=== PATIENT | female | born 2005 | race Caucasian/White ===

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

== ENCOUNTER → 2024-12-20 | Outpatient (CLI) | payer MEDICAID, SELFPAY ==
--- OUTSIDE RECORDS SUMMARY | 2024-12-20 12:12 | XMS RPT_ITS | CCD ---
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 Juliane Alvarez Attending Provider DANA HERRERA Attending Unavailable REFERRED, SELF Referring Unavailable DELFINA ROLON Primary Care Unavailable Yoshi GUIDANCE SECRETARY, GUIDANCE SECRETARY-C Otis Primary Care Provider Yoshi BOSWELL, ANDREIA-Bertha Berg Referring Provider [phone] Nelson BOSWELL, RAVINDRA Anton Attending Provider GENERIC PROVIDER, NO ASSIGNED PCP Primary Care Unavailable BRUCE SOMMERS Attending Unavailable Generic Provider MD, No Assigned Pcp Primary Car e Provider Unavailable Karla Lala Attending Unavailable Cheli Urena Referring Unavailable Cheli Urena Primary Care Unavailable Allergies Allergy Classification Reported Allergen(s) Allergy Type Date of Onset Reaction(s) Facility (1 source) OTHER; Translations: [OTHER] Propensity to adverse reactions to food (disorder) 3 [facility] Repository Medications Current Medications Medication Drug Class(es) Dates Sig (Normalized) Sig (Original) amoxicillin 875 mg / clavulanate 125 mg oral tablet (1 source) Penicillin-class Antibacterial Start: 02-25-2023 End: 03-07-2023 take 1 tablet by mouth twice daily amoxicillin-pot clavulanate (Augmentin) 875-125 mg tablet Indications: Acute sinusitis, recurrence not specified, unspecified location Take 1 tablet (875 mg) by mouth 2 times a day for 10 days. Take with a meal. 20 tablet 0 02/25/2023 03/07/2023 Active Desog-E.Estradiol/ E.Estradiol (20 sources) Progestin, Estrogen Start: 10-06-2023 take 0.15 tablet by mouth once daily Desog-E.Estradiol /E.Estradiol (Kariva (28)) 0.15-0.02 mgx21 /0.01 mg x 5 tablet Active 1 {tbl} PO daily October 06, 2023 2:06pm Start: 01-26-2023 take 1 tablet by marysol once daily Volnea, 28, 0.15-0.02 mgx21 /0.01 mg x 5 tablet take 1 tablet by mouth once daily ACTIVE PILLS ONLY FOR CONTINUOUS CYCLING 0 01/26/2023 Active Start: 10-05-2022 End: 10-06-2023 take 0.15 tablet by mouth once daily Desog-E.Estradiol/E.Estradiol (Kariva (28)) 0.15-0.02 mgx21 /0.01 mg x 5 tablet Discontinued 1 {tbl} PO daily October 05, 2022 11:01am October 06, 2023 2:06pm Start: 10-05-2022 take 0.15 tablet by mouth once daily Desog-E.Estradiol/E.Estradiol (Kariva (28)) 0.15-0.02 mgx21 /0.01 mg x 5 tablet Active 1 TABLET PO daily October 05, 2022 11:01am Start: 10-05-2022 take 0.15 tablet by mouth once daily Desog-E.Estradiol/E.Estradiol (Kariva (28)) 0.15-0.02 mgx21 /0.01 mg x 5 tablet Active 1 TABLET PO daily October 05, 2022 10:01am Start: 09-15-2022 End: 10-05-2022 take 0.15 tablet by mouth once daily Desog-E.Estradiol/E.Estradiol (Kariva (28)) 0.15-0.02 mgx21 /0.01 mg x 5 tablet Discontinued 1 {tbl} PO daily September 15, 2022 11:35am October 05, 2022 11:02am Start: 09-15-2022 End: 10-05-2022 take 0.15 tablet by mouth once daily Desog-E.Estradiol/E.Estradiol (Kariva (28)) 0.15-0.02 mgx21 /0.01 mg x 5 tablet Discontinued 1 TABLET PO daily September 15, 2022 11:35am October 05, 2022 11:02am Start: 09-15-2022 End: 10-05-2022 take 0.15 tablet by mouth once daily Desog-E.Estradiol/E.Estradiol (Kariva (28)) 0.15-0.02 mgx21 /0.01 mg x 5 tablet Discontinued 1 TABLET PO daily September 15, 2022 10:35am October 05, 2022 10:02am Start: 04-04-2022 End: 09-15-2022 take 0.15 tablet by mouth once daily Desog-E.Estradiol/E.Estradiol (Kariva (28)) 0.15-0.02 mgx21 /0.01 mg x 5 tablet Discontinued 1 {tbl} PO daily April 04, 2022 10:31am September 15, 2022 11:35am Start: 04-04-2022 End: 09-15-2022 take 0.15 tablet by mouth once daily Desog-E.Estradiol/E.Estradiol (Kariva (28)) 0.15-0.02 mgx21 /0.01 mg x 5 tablet Discontinued 1 TABLET PO daily April 04, 2022 10:31am September 15, 2022 11:35am Start: 04-04-2022 End: 09-15-2022 take 0.15 tablet by mouth once daily Desog-E.Estradiol/E.Estradiol (Kariva (28)) 0.15-0.02 mgx21 /0.01 mg x 5 tablet Discontinued 1 TABLET PO daily April 04, 2022 9:31am September 15, 2022 10:35am Start: 03-23-2021 End: 04-04-2022 take 0.15 tablet by mouth once daily Desog-E.Estradiol/E.Estradiol (Kariva (28)) 0.15-0.02 mgx21 /0.01 mg x 5 tablet Discontinued 1 {tbl} PO daily March 23, 2021 2:06pm April 04, 2022 10:31am Start: 03-23-2021 End: 04-04-2022 take 0.15 tablet by mouth once daily Desog-E.Estradiol/E.Estradiol (Kariva (28)) 0.15-0.02 mgx21 /0.01 mg x 5 tablet Discontinued 1 TABLET PO daily March 23, 2021 2:06pm April 04, 2022 10:31am Start: 03-23-2021 End: 04-04-2022 take 0.15 tablet by mouth once daily Desog-E.Estradiol/E.Estradiol (Kariva (28)) 0.15-0.02 mgx21 /0.01 mg x 5 tablet Discontinued 1 TABLET PO daily March 23, 2021 1:06pm April 04, 2022 9:31am Start: 03-23-2021 take 0.15 tablet by mouth once daily Desog-E.Estradiol/E.Estradiol (Kariva (28)) 0.15-0.02 mgx21 /0.01 mg x 5 tablet Active 1 TABLET PO daily March 23, 2021 2:06pm Start: 02-19-2020 End: 03-23-2021 take 0.15 tablet by mouth once daily Desog-E.Estradiol/E.Estradiol (Kariva (28)) 0.15-0.02 mgx21 /0.01 mg x 5 tablet Discontinued 1 {tbl} PO daily February 19, 2020 12:20pm March 23, 2021 2:06pm Start: 02-19-2020 End: 03-23-2021 take 0.15 tablet by mouth once daily Desog-E.Estradiol/E.Estradiol (Kariva (28)) 0.15-0.02 mgx21 /0.01 mg x 5 tablet Discontinued 1 TABLET PO daily February 19, 2020 11:20am March 23, 2021 1:06pm Start: 02-19-2020 End: 03-23-2021 take 0.15 tablet by mouth once daily Desog-E.Estradiol/E.Estradiol (Kariva (28)) 0.15-0.02 mgx21 /0.01 mg x 5 tablet Discontinued 1 TABLET PO daily February 19, 2020 12:20pm March 23, 2021 2:06pm Start: 02-17-2020 End: 02-19-2020 take 0.15 tablet by mouth once daily Desog-E.Estradiol/E.Estradiol (Kariva (28)) 0.15-0.02 mgx21 /0.01 mg x 5 tablet Discontinued 1 {tbl} PO daily February 17, 2020 9:52am February 19, 2020 12:20pm Start: 02-17-2020 End: 02-19-2020 take 0.15 tablet by mouth once daily Desog-E.Estradiol/E.Estradiol (Kariva (28)) 0.15-0.02 mgx21 /0.01 mg x 5 tablet Discontinued 1 TABLET PO daily February 17, 2020 8:52am February 19, 2020 11:20am Start: 02-17-2020 End: 02-19-2020 take 0.15 tablet by mouth once daily Desog-E.Estradiol/E.Estradiol (Kariva (28)) 0.15-0.02 mgx21 /0.01 mg x 5 tablet Discontinued 1 TABLET PO daily February 17, 2020 9:52am February 19, 2020 12:20pm Start: 02-21-2019 End: 02-17-2020 take 0.15 tablet by mouth once daily Desog-E.Estradiol/E.Estradiol (Kariva (28)) 0.15-0.02 mgx21 /0.01 mg x 5 tablet Discontinued 1 {tbl} PO daily February 21, 2019 11:54am February 17, 2020 9:52am Start: 02-21-2019 End: 02-17-2020 take 0.15 tablet by mouth once daily Desog-E.Estradiol/E.Estradiol (Kariva (28)) 0.15-0.02 mgx21 /0.01 mg x 5 tablet Discontinued 1 TABLET PO daily February 21, 2019 10:54am February 17, 2020 8:52am Start: 02-21-2019 End: 02-17-2020 take 0.15 tablet by mouth once daily Desog-E.Estradiol/E.Estradiol (Kariva (28)) 0.15-0.02 mgx21 /0.01 mg x 5 tablet Discontinued 1 TABLET PO daily February 21, 2019 11:54am February 17, 2020 9:52am Start: 01-31-2019 End: 02-21-2019 take 0.15 tablet by mouth once daily Desog-E.Estradiol/E.Estradiol (Kariva (28)) 0.15-0.02 mgx21 /0.01 mg x 5 tablet Discontinued 1 {tbl} PO daily January 31, 2019 10:02am February 21, 2019 11:54am Start: 01-31-2019 End: 02-21-2019 take 0.15 tablet by mouth once daily Desog-E.Estradiol/E.Estradiol (Kariva (28)) 0.15-0.02 mgx21 /0.01 mg x 5 tablet Discontinued 1 TABLET PO daily January 31, 2019 9:02am February 21, 2019 10:54am Start: 01-31-2019 End: 02-21-2019 take 0.15 tablet by mouth once daily Desog-E.Estradiol/E.Estradiol (Kariva (28)) 0.15-0.02 mgx21 /0.01 mg x 5 tablet Discontinued 1 TABLET PO daily January 31, 2019 10:02am February 21, 2019 11:54am Start: 10-10-2018 End: 01-31-2019 take 0.15 tablet by mouth once daily Desog-E.Estradiol/E.Estradiol (Kariva (28)) 0.15-0.02 mgx21 /0.01 mg x 5 tablet Discontinued 1 {tbl} PO daily October 10, 2018 12:00am January 31, 2019 10:02am Start: 10-10-2018 End: 01-31-2019 take 0.15 tablet by mouth once daily Desog-E.Estradiol/E.Estradiol (Kariva (28)) 0.15-0.02 mgx21 /0.01 mg x 5 tablet Discontinued 1 TABLET PO daily October 09, 2018 11:00pm January 31, 2019 9:02am Start: 10-10-2018 End: 01-31-2019 take 0.15 tablet by mouth once daily Desog-E.Estradiol/E.Estradiol (Kariva (28)) 0.15-0.02 mgx21 /0.01 mg x 5 tablet Discontinued 1 TABLET PO daily October 10, 2018 12:00am January 31, 2019 10:02am spironolactone 100 mg oral tablet (3 sources) Aldosterone Antagonist Start: 10-05-2022 take 1 tablet by mouth once daily Spironolactone 100 mg tablet Active 100 mg PO DAILY October 05, 2022 12:00am Completed/Discontinued Medications Medication Drug Class(es) Dates Sig (Normalized) Sig (Original) Benzoyl Peroxide (4 sources) Start: 02-19-2020 End: 03-23-2021 acne medication Discontinued PO February 19, 2020 12:00am March 23, 2021 1:01pm Start: 02-19-2020 End: 03-23-2021 acne medication Discontinued PO February 19, 2020 1:00am March 23, 2021 2:01pm doxycycline hyclate 100 mg oral capsule (5 sources) Tetracycline-class Drug Start: 10-10-2023 End: 10-15-2023 take 1 capsule by mouth twice daily Doxycycline Hyclate 100 mg capsule Discontinued 100 mg PO TWICE A DAY 10 October 10, 2023 12:00am October 14, 2023 12:00am October 15, 2023 12:04am Start: 10-10-2018 End: 10-15-2019 take 1 capsule by mouth once daily Doxycycline Hyclate 100 mg capsule Discontinued 100 mg PO DAILY October 10, 2018 12:00am October 15, 2019 1:47pm fluconazole 150 mg oral tablet (6 sources) Azole Antifungal Start: 02-01-2023 End: 09-19-2023 take 1 tablet by mouth once Fluconazole 150 mg tablet Discontinued 150 mg PO ONCE 1 February 01, 2023 1:00am September 19, 2023 11:04am take 3 days after last pill. Start: 01-25-2023 End: 09-19-2023 Fluconazole 150 mg tablet Ac tive 150 mg PO .COMPLEX 2 September 19, 2023 11:04am 150 mg PO take one po now and repeat in 3 days Problems Problem Classification Problem Date Documented Date Episodic/Chronic Immunizations and screening for infectious disease (6 sources) Patient encounter status; Translations: [Encounter for screening for infections with a predominantly sexual mode of transmission] Episodic Comment on above: false positive HIV, antibody confirmed negative Inflammatory diseases of female pelvic organs (1 source) Acute vaginitis; Translations: [Vaginitis and vulvovaginitis, unspecified] 01-25-2023 Episodic Other skin disorders (4 sources) Acne; Translations: [Acne, unspecified] 10-05-2022 Episodic Comment on above: controlled with ocp, spirolactone Other skin disorders (4 sources) Eruption; Translations: [Rash and other nonspecific skin eruption] 11-30-2018 Episodic Other skin disorders (1 source) Acne, unspecified; Translations: [Other acne] 10-05-2022 Episodic Other upper respiratory infections (7 sources) Viral pharyngitis; Translations: [Acute pharyngitis due to other specified organisms] Onset: 02-25-2023 11-30-2018 Episodic Sprains and strains (4 sources) Strain of trapezius muscle; Translations: [Strain of other muscles, fascia and tendons at shoulder and upper arm level, unspecified arm, initial encounter] 10-16-2016 Episodic Urinary tract infections (1 source) Urinary tract infectious disease; Translations: [Urinary tract infection, site not specified] 10-10-2023 Episodic Results Test Name Value Interpretation Reference Range Facil ity No Panel InformationOrdered By: Cheli Urena on 06-20-2023 Rubella IgG Antibody Non-Reactive Nonreactive [facility] Comment on above: Antibody Results Int erpretation of Immune Status Non Reactive Presumed Non-Immune Equivocal Equivocal Reactive Presumed Immune Serum Varicella zoster virus IgG antibody assay by immunoassay (units/volume)Ordered By: Cheli Urena on 06-20-2023 VZV IgG IA Qn (S) < 135 index Immune >165 [facility] Comment on above: Negative <135 Equivo fabiola 135 - 165 Positive >165A positive result generally indicates exposure to thepathogen or administration of specific immunoglobulins,but it is not indication of active infection or stageof disease. Serum measles virus IgG anti body assay by immunoassay (units/volume)Ordered By: Cheli Urena on 06-20-2023 MeV IgG IA Qn (S) 23.1 AU/mL Immune >16.4 [facility] Comment on above: Negative <13.5 Equiv ocal 13.5 - 16.4 Positive >16.4Presence of antibodies to Rubeola is presumptive evidenceof immunity except when acute infection is suspected.Performed at: [address] [id number] Director: Abhilash Walls PhD, Phone: [phone] Serum mumps virus IgG antibo dy assay (units/volume)Ordered By: Cheli Urena on 06-20-2023 MuV IgG Qn (S) 103.0 AU/mL Immune >10.9 [facility] Comment on above: Negative <9.0 Equivo fabiola 9.0 - 10.9 Positive >10.9A positive result generally indicates past exposure toMumps virus or previous vaccination. Gram stain for investigation of transfusion reactionOrdered By: Sloane Damon on 01-25-2023 Microscopic observation Gram stain Nom (Unsp spec) [facility] No Panel Informationon 01-25 POC Bacterial Vaginitis (Rapid) Negative [facility] POC Trichomonas (Rapid) Negative [facility] Thin prep Papanicolaou smear with manual screeningOrdered By: Sloane Damon on 01-25-2023 Genital Culture Presumptive C albicans [facility] Basophil percentageon 2021 C. trachomatis DNA NICKOLAS+probe Ql (Unsp spec) Negative Negative [facility] Work Phone: HIV 1 and HIV-2 antibody ass ay with HIV-1 p24 antigen detectionon 09-10-2021 HIV 1+2 Ab+HIV1 p24 Ag IA Ql Preliminary Reactive Nonreactive [facility] Work Phone: Comment on above: SEND OUT PRESUMPTIVE REACTIVE SPECIMENS TO [facility] TEST NUMBER [id number] FOR CONFIRMATION. Neisseria gonorrhoeae detect ion by PCRon 09-10-2021 N. gonorrhoeae DNA NICKOLAS+probe Ql (Cervical mucus) Negative Negative [facility] Work Phone: No Panel Informationon 09-10 Hepatitis B Surface Antigen Non-Reactive Nonreactive [facility] Work Phone: Hepatitis C Antibody Non-Reactive Nonreactive [facility] Work Phone: Comment on above: Non Reactive: < 0.8 Equivocal: >/= 0.8 to < 1.0 Reactive: >/= 1.0The CDC recommends that a reactive/equivocal HCV antibody result be followed up by the HCV Nucleic Acid Amplificationtest ([id number]) Herpes Simplex Virus I IgG Antibody < 0.91 index 0.00-0.90 [facility] Work Phone: Comment on above: Negative <0.91 Equiv ocal 0.91 - 1.09 Positive >1.09 Note: Negative indicates no antibodies detected to HSV-1. Equivocal may suggest early infection. If clinically appropriate, retest at later date. Positive indicates antibodies detected to HSV-1. Serum Treponema species anti body detectionon 09-10-2021 Treponema sp Ab Ql (S) Non-Reactive [facility] Work Phone: Serum herpes simplex virus 2 antibody assay by immunoassay (units/volume)on 09-10-2021 HSV 2 Ab IA Qn (S) < 0.91 index 0.00-0.90 [facility] Work Phone: Comment on above: Negative <0.91 Equiv ocal 0.91 - 1.09 Positive >1.09 Note: Negative indicates no HSV-2 antibodies detected. Positive indicates HSV-2 antibodies detected. Equivocal and low positive HSV-2 screens (Index 0.91-5.00) may be false positive and are reflexed to supplemental testing in accordance with CDC guidelines.Performed at: [facility] [employer] [id number] Director: Abhilash Walls PhD, Phone: [phone] Vital Signs Date Time Vital Sign Value Performing Clinician Facility 02-25-2023 10:23-0500 Diastolic blood pressure 65 mm[Hg] Bruce Sommers [employer] Work Phone: [facility] 02-25-2023 10:23-0500 Systolic blood pressure 93 mm[Hg] Bruce Sommers [employer] Work Phone: [facility] 02-25-2023 10:21-0500 Body height 157.5 cm Bruce Sommers [employer] Work Phone: [facility] 02-25-2023 10:21-0500 Body mass index (BMI) [Ratio] 21.95 kg/m2 Bruce Sommers [employer] Work Phone: [facility] 02-25-2023 10:21-0500 Body temperature 98.49 [degF] Bruce Sommers [employer] Work Phone: [facility] 02-25-2023 10:21-0500 Body weight 54.43 kg Bruce Sommers [employer] Work Phone: [facility] 02-25-2023 10:21-0500 Heart rate 90 /min Bruce Sommers [employer] Work Phone: [facility] 02-25-2023 10:21-0500 Respiratory rate 18 /min Bruce Kirkpatrickta [employer] Work Phone: [facility] 02-25-2023 10:21-0500 SaO2% (BldA) [Mass fraction] 97 % Bruce Sommers [employer] Work Phone: [facility] 01-25-2023 14:31-0500 Body height 160.02 cm GUIDANCE SECRETARY-C Otis Belle GUIDANCE SECRETARY Work Phone: [facility] 01-25-2023 14:23-0500 Body mass index (BMI) [Percentile] Per age and sex 60.1 % GUIDANCE SECRETARY-C Otis Belle GUIDANCE SECRETARY Work Phone: [facility] 01-25-2023 14:23-0500 Body mass index (BMI) [Ratio] 22.4 kg/m2 GUIDANCE SECRETARY-C Otis Belle GUIDANCE SECRETARY Work Phone: [facility] 01-25-2023 14:23-0500 Body weight 57.37 kg GUIDANCE SECRETARY-C Otis Gonzalezn GUIDANCE SECRETARY Work Phone: [facility] 01-25-2023 14:23-0500 Diastolic blood pressure 64 mm[Hg] GUIDANCE SECRETARY-C Otis Gonzalezn GUIDANCE SECRETARY Work Phone: [facility] 01-25-2023 14:23-0500 Systolic blood pressure 112 mm[Hg] GUIDANCE SECRETARY-C Otis Gonzalezn GUIDANCE SECRETARY Work Phone: [facility] 10-05-2022 10:54-0400 Body mass index (BMI) [Percentile] Per age and sex 54.2 % GUIDANCE SECRETARY-C Otis Gonzalezn GUIDANCE SECRETARY Work Phone: [facility] 10-05-2022 10:54-0400 Body mass index (BMI) [Ratio] 21.8 kg/m2 GUIDANCE SECRETARY-C Otistoni Gonzalezn GUIDANCE SECRETARY Work Phone: [facility] 10-05-2022 10:54-0400 Body weight 55.84 kg GUIDANCE SECRETARY-C Otis Belle GUIDANCE SECRETARY Work Phone: [facility] 10-05-2022 10:54-0400 Diastolic blood pressure 66 mm[Hg] GUIDANCE SECRETARY-C Otis Belle GUIDANCE SECRETARY Work Phone: [facility] 10-05-2022 10:54-0400 Systolic blood pressure 101 mm[Hg] GUIDANCE SECRETARY-C Otis Belle GUIDANCE SECRETARY Work Phone: [facility] 09-10-2021 15:28-0400 Body height 160.02 cm GUIDANCE SECRETARY-C Otistoni Gonzalezn GUIDANCE SECRETARY Work Phone: [facility] Work Phone: 09-10-2021 13:53-0400 Body mass index (BMI) [Percentile] Per age and sex 73.3 % GUIDANCE SECRETARY-C Otis Gonzalezn GUIDANCE SECRETARY Work Phone: [facility] Work Phone: 09-10-2021 13:53-0400 Body mass index (BMI) [Ratio] 23.4 kg/m2 GUIDANCE SECRETARY-C Otistoni Pérezanan GUIDANCE SECRETARY Work Phone: [facility] Work Phone: 09-10-2021 13:53-0400 Body weight 60.1 kg GUIDANCE SECRETARY-C Otis Gonzalezn GUIDANCE SECRETARY Work Phone: [facility] Work Phone: 09-10-2021 13:53-0400 Diastolic blood pressure 68 mm[Hg] GUIDANCE SECRETARY-C Otistoni Gonzalezn GUIDANCE SECRETARY Work Phone: [facility] Work Phone: 09-10-2021 13:53-0400 Systolic blood pressure 118 mm[Hg] GUIDANCE SECRETARY-C Otistoni Gonzalezn GUIDANCE SECRETARY Work Phone: [facility] Work Phone: Encounters Encounter Date Encounter Type Care Provider Facility Start: 12-20-[address] [facility] Start: 06-20-2023 End: 06-20-2023 ambulatory [facility] Work Phone: Start: 06-20-2023 End: 06-20-2023 Patient encounter procedure [facility] Start: 02-25-2023 End: 02-25-2023 ambulatory NO ASSIGNED PCP GENERIC PROVIDER [facility] Start: 02-25-2023 End: 02-25-2023 Patient encounter procedure Bruce Sommers [employer] Work Phone: [facility] Comment on above: Acute sinusitis, rec urrence not specified, unspecified location (Primary Dx) Start: 01-25-2023 End: 01-25-2023 ambulatory GUIDANCE SECRETARY-C Otis Belle GUIDANCE SECRETARY Work Phone: [facility] Work Phone: Start: 01-25-2023 End: 01-25-2023 Patient encounter procedure GUIDANCE SECRETARY-C Otis Belle GUIDANCE SECRETARY Work Phone: [facility], Specimen Work Phone: Start: 01-25-2023 End: 01-25-2023 Patient encounter procedure GUIDANCE SECRETARY-C Otis Belle GUIDANCE SECRETARY Work Phone: [facility] Work Phone: Start: 10-05-2022 End: 10-05-2022 Patient encounter procedure GUIDANCE SECRETARY-C Otis Belle GUIDANCE SECRETARY Work Phone: [facility] Work Phone: Start: 11-29-2021 End: 11-29-2021 ambulatory DANA HERRERA [facility] Start: 09-10-2021 End: 09-10-2021 Patient encounter procedure GUIDANCE SECRETARY-Bertha Belle GUIDANCE SECRETARY Work Phone: [facility] Procedures Date Procedure Procedure Detail Performing Clinician Start: 01-25-2023 Cytopathology proced ure, preparation of smear, genital source GUIDANCE SECRETARY-Bertha Belle GUIDANCE SECRETARY Work Phone: Start: 01-25-2023 Investigation of transfusion reaction GUIDANCE SECRETARYSindy Belle GUIDANCE SECRETARY Work Phone: Plan of Treatment Date Care Activity Detail Author Start: 02-11-2054 Zoster Vaccines (1 of 2) Zoste r Vaccines (1 of 2) [facility] Start: 10-21-2022 Influenza vaccination Influenza Vacc ine (#1) [facility] Start: 02-11-2022 Hepatitis C screening Hepatitis C Sc reening [facility] Start: 09-10-2021 [facility] Work [facility]: Start: 02-11-2015 HPV Vaccines (1 - 2- dose series) HPV Vaccines (1 - 2-dose series) [facility] Start: 02-11-2011 DTaP/Tdap/Td Vaccine s (1 - Tdap) DTaP/Tdap/Td Vaccines (1 - Tdap) [facility] Start: 02-11-2007 Well Child Visit (WC V) - Annual Well Child Visit (WCV) - Annual [facility] Start: 02-11-2005 MMR Vaccines (1 of 1 - Standard series) MMR Vaccines (1 of 1 - Standard series) [facility] Start: 02-11-2005 Varicella vaccination Varicell a Vaccines (1 of 2 - 2-dose childhood series) [facility] Start: 2004 Application of denta l fluoride varnish Fluoride Varnish [facility] Start: 2004 COVID-19 Vaccine (#1) COVID-19 Vacci ne (#1) [facility] Start: 2004 Hearing Screening (#1) Hearing Scree vargas (#1) [facility] Start: 2004 Hepatitis B Vaccines (1 of 3 - 3-dose series) Hepatitis B Vaccines (1 of 3 - 3-dose series) [facility] Start: 2004 HIV screening HIV Screening [facility] Start: 2004 Lipid panel Lipid Panel [facility] Procedure [facility] Work Phone: Payers Date Payer Category Payer Self-pay [id number] 2023 Unknown [id number] 2023 Unknown MARQUIS BOBBY [id number] 2023-Present [address] [place] [address] [id number] 2004 Unknown [id number] 1978 Unknown [id number] Unknown [id number] Unknown [id number] Unknown ANTHEM [id number] Unknown [facility] [id number] Unknown [id number] Social History Date Type Detail Facility Start: 09-10-2021 End: 01-25-2023 Tobacco smoking status NHIS Unknown if ever smoked [facility] Start: 11-29-2018 None [facility] Start: 11-29-2018 With Family [facility] Start: 2004 Sex Assigned At Female [facility] Start: 02-25-2023 Tobacco smoking stat us NHIS Never smoked tobacco [facility] Work Phone: Start: 02-25-2023 Tobacco use and exposure Smokeless tobacco non-user [facility] Work Phone: Start: 02-25-2023 History of Social function [facility] Work Phone: Start: 02-25-2023 Tobacco use panel [facility] Work Phone: Start: 2005 Sex Assigned At Not on file U [facility] Work Phone: Start: 02-15-2023 End: 02-25-2023 Exposure to SARS-CoV-2 (event) Not sure [facility] Start: 04-30-2024 Sex Female (finding) [facility] History of Present illness Narrative 02-25-2023 ABILIO Dunbar - 02/25/2023 9:15 AM EST Note Date & Type Note Facility 02-25-2023 History of Present illness Narrative [facility] ABILIO Dunbar Visit Note - 02/25/2023 10:53 AM This note was generated with voice recognition software and may contain errors including spelling, grammar, syntax, and misrecognization of what was dictated. Patient: Dayna Herndon, , 18 y.o., female PCP: No Assigned PCP Generic ProviderMD --- ALLERGIES: No Known Allergies CURRENT MEDICATIONS: Current Outpatient Medications Medication Instructions amoxicillin-pot clavulanate (Augmentin) 875-125 mg tablet 875 mg, oral, 2 times daily, Take with a meal. Volnea, 28, 0.15-0.02 mgx21 /0.01 mg x 5 tablet take 1 tablet by mouth once daily ACTIVE PILLS ONLY FOR CONTINUOUS CYCLING --- PAST MEDICAL HX: No known health issues. SURGICAL HX: History of T&A and wisdom teeth extraction. FAMILY HX: No pertinent history. SOCIAL HX: reports that she has never smoked. She has never used smokeless tobacco. 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 --- CHIEF COMPLAINT: Chief Complaint Patient presents with Sore Throat COVID positive 02/15. Sx worsening since. Sinus pressure, sore throat, chest congestion, body aches Generalized Body Aches HISTORY OF PRESENT ILLNESS: The history was obtained from patientAman Gay is a 18 y.o. female, who presents with a chief complaint of nasal congestion (clear mucus), sinus pain, body aches, a sore throat, PND, headaches, bilat ear pain, and a mild, productive cough (yellow phlegm) - sxs started 12 days ago, and she tested + for COVID 10 days ago. She has also had subjective fever/chills, n/v that she attributes to her PND, and soft stools. She denies any abdominal pain, chest pain, wheezing/shortness of breath, rashes, urinary symptoms. Denies any lightheadedness or dizziness; no changes in mental status. No swelling in legs. Appetite is decreased ; is able to eat and drink fluids without difficulty; denies loss of sense of taste or smell. Reports symptoms have gotten worse since onset. Has been taking Tylenol Cold and Flu and plain Tylenol without much relief; no other [id number] medications or home remedies for symptom management. Reports several family members have had COVID recently. Has not received the COVID vaccine. Is not a smoker. Does vape. No known history of asthma/COPD/respiratory issues REVIEW OF SYSTEMS: 10 systems reviewed negative with exception of history of present illness as listed above. TODAY'S VITALS: BP 93/65 (BP Location: Right arm, Patient Position: Sitting, BP Cuff Size: Child) Pulse 90 Temp 36.9 C (98.5 F) (Temporal) Resp 18 Ht 1.575 m (5' 2) Wt 54.4 kg (120 lb) SpO2 97% BMI 21.95 kg/m Recheck BP: 107/73. PHYSICAL EXAMINATION: General: Mildly ill-appearing, well nourished female; alert and oriented, in no acute distress. + audible nasal congestion. Eyes: Pupils equal, round and reactive to light. No conjunctival erythema; no scleral icterus. HENT: + L sided maxillary sinus tenderness, with audible nasal congestion. Bilat ear canals clear/unremarkable, but TMs with clear effusions bilat; no erythema, and not bulging. Nasal mucosa moderately boggy and edematous. Airway patent, oral mucosa moist. Posterior pharynx mildly injected but without vesicles or oropharyngeal exudate aside from PND. Uvula is midline. Trachea is midline. Managing oral secretions without difficulty. Neck: Supple. Tender, mobile anterior cervical lymphadenopathy bilat. Respiratory: Lungs are clear to auscultation; no wheezes, rhonchi, or rales. Respirations unlabored, Breath sounds are equal, Symmetrical chest wall expansion. + non-productive cough noted. Cardiovascular: Normal rate, Regular rhythm. Normal S1S2. No m/r/g. No peripheral edema. Gastrointestinal: Soft, non-tender, non-distended; no palpable masses or organomegaly. Bowel sounds normoactive. Musculoskeletal: Grossly normal Integumentary: [place], warm, dry, and intact. No rashes or skin discoloration appreciated. Neurologic: Alert and oriented, no focal deficits, no motor or sensory deficits. Cognition and Speech: Oriented, Speech clear and coherent. Psychiatric: Cooperative, Appropriate mood & affect. --- Medical Decision Making LABORATORY or RADIOLOGICAL IMAGING ORDERS/RESULTS: None. IMPRESSION/PLAN: Course: Worsening; stable 1. Acute sinusitis, recurrence not specified, unspecified location - amoxicillin-pot clavulanate (Augmentin) 875-125 mg tablet; Take 1 tablet (875 mg) by mouth 2 times a day for 10 days. Take with a meal. Dispense: 20 tablet; Refill: 0 No red flags on exam today; BP low but patient reports is asymptomatic. Symptoms consistent with sinusitis (secondary to recent COVID infection), although reviewed other potential etiologies. Due to severity/duration of sxs, will begin treatment for bacterial infection today (Augmentin). Should finish full course of antibiotics, even if symptoms resolve more quickly. Instructed to push fluids, rest, and to use appropriate over the counter medications as needed for management of symptoms - discussed that Mucinex, vaporizer, and Saline Nasal [place] may be helpful. Reviewed red flags to monitor for, counseled on potential adverse reactions of treatments, expectations for improvement in sxs, and advised to follow-up with primary care provider in 3-5 days if symptoms persist, or sooner if worsening or if any additional concerns/red flags develop. Patient verbalized understanding and agreed with plan of care; questions were encouraged and answered. ABILIO Dunbar Advanced Practice Provider [facility] documented in this encounter [facility] Work Phone: Evaluation note Note Date & Type Note Facility Evaluation note Diagnosis Onset Date Screen for STD (sexually tra nsmitted disease) acute [facility] Work Phone: Evaluation note Note Date & Type Note Facility Evaluation note Diagnosis Onset Date Acne acute Encounter for routine gyneco logical examination noneactive Vaginitis noneactive [facility] Work Phone: Evaluation note Note Date & Type Note Facility Evaluation note Diagnosis Acute sinusitis, recurrence not specified, unspecified location- Primary documented in this encounter [facility] Work Phone: Evaluation note Note Date & Type Note Facility Evaluation note No assessment information availa ble [facility] Work Phone: Reason for referral (narrative) Note Date & Type Note Facility Reason for referral (narrative) No reason for referral information available [facility] Work Phone: Chief Complaint and Reason for Visit Chief Complaint STD CHECK, HPV CONSU LT E ORDER Reason for Visit Screen for STD (sexu ally transmitted disease) 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 Reason for Visit Acne Encounter for routine gynecological examination Vaginitis Summary Purpose Family History No Family History Records Found Advance Directives No Advanced Directives Records FoundNo Advanced Directives Records FoundNo Advanced Directives Records Found Additional Source Comments Goals (unrecognized section and content) Goals may be documented in a n alternate sectionGoals may be documented in an alternate sectionGoals may be documented in an alternate sectionGoals may be documented in an alternate section INFORMATION SOURCE (unrecogn ized section and content) DATE CREATED AUTHOR 11/29/2021 [facility] DATE CREATED AUTHOR AUTHOR'Theresa DUNCAN 02/26/2023 [facility] DATE CREATED AUTHOR AUTHOR'S ORGANIZ ATION 12/13/2024 [facility] Care Teams (unrecognized sec tion and content) Team Status: Active Member Role Status Dates Dr. 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 Cheli Urena MD Family Provider Active Dr. Cheli Urena MD Primary Care Provider Active Team Status: Inactive Member Role Status Dates Dr. Cheli Urena MD Primary Care Prov ider, Attending Provider, Referring Provider Active Reason for Visit (unrecogniz ed section and content) Reason Comments Sore Throat COVID positive 02/15 . Sx worsening since. Sinus pressure, sore throat, chest congestion, body aches Generalized Body Aches FOR RECORDS PERTAINING TO PATIENTS WHO ARE OR HAVE BEEN ENROLLED IN A CHEMICAL DEPENDENCY/SUBSTANCEABUSE PROGRAM, SOME INFORMATION MAY BE OMITTED. This clinical summary was aggregated from multiple sources. Caution should be exercised in using it in the provision of clinical care. This summary normalizes information from multiple sources, and as a consequence, information in this document may materially change the coding, format and clinical context of patient data. In addition, data may be omitted in some cases. CLINICAL DECISIONS SHOULD BE BASED ON THE PRIMARY CLINICAL RECORDS. [employer] provides no warranty or guarantee of the accuracy or completeness of information in this document.
[2024-12-23 06:07] LABS: Chlamydia By Nucleic Acid AMP Negative (Negative); Gonococcus By Nucleic Acid AMP Negative (Negative)
== END | disposition home or self-care (01) ==
LOC: LABSPEC 11:49
PROVIDERS: PCP Family Medicine; Visit Provider Advanced Practice Midwife
DX: Z12.4 Encounter for screening for malignant neoplasm of cervix (principal); Z20.2 Contact with and (suspected) exposure to infections with a predominantly sexual mode of transmission
CPT/HCPCS: 87491; 87591; 88175; G0145